=== PATIENT | female | born 1935 | race American Indian/Alaskan Native ===

== ENCOUNTER 2016-10-25 09:00 | Outpatient (CLI) | payer MEDICARE, OTHER ==
[2016-10-25] MEDS ORDERED: XYLOCAINE TOPICAL 2% ONE (09:31)
[2016-10-25] MEDS ORDERED: XYLOCAINE TOPICAL 2% TP ONE (09:47)
== END 2016-10-25 09:01 | disposition home or self-care (01) ==
LOC: WOUND 09:00
PROVIDERS: ATTEND Orthopaedic Surgery
DX: L89.154 Pressure ulcer of sacral region, stage 4 (principal); L89.322 Pressure ulcer of left buttock, stage 2; L89.312 Pressure ulcer of right buttock, stage 2; Z87.891 Personal history of nicotine dependence

== ENCOUNTER 2016-11-14 09:42 | Outpatient (CLI) | payer MEDICARE, OTHER ==
[2016-11-14] MEDS ORDERED: XYLOCAINE TOPICAL 2% TP ONE ×2 (09:46→09:58)
== END 2016-11-14 09:43 | disposition home or self-care (01) ==
LOC: WOUND 09:42
PROVIDERS: ATTEND Internal Medicine
DX: L89.154 Pressure ulcer of sacral region, stage 4 (principal); L89.323 Pressure ulcer of left buttock, stage 3; K59.00 Constipation, unspecified; K21.0 Gastro-esophageal reflux disease with esophagitis; M62.3 Immobility syndrome (paraplegic); G60.3 Idiopathic progressive neuropathy

== ENCOUNTER 2016-12-05 09:21 | Outpatient (CLI) | payer MEDICARE, OTHER ==
[2016-12-05] MEDS ORDERED: XYLOCAINE TOPICAL 4% TP ONE ×2 (09:41→10:16)
== END 2016-12-05 09:22 | disposition home or self-care (01) ==
LOC: WOUND 09:21
PROVIDERS: ATTEND Internal Medicine
DX: L89.312 Pressure ulcer of right buttock, stage 2 (principal); L89.154 Pressure ulcer of sacral region, stage 4; K21.0 Gastro-esophageal reflux disease with esophagitis; M62.3 Immobility syndrome (paraplegic); G60.3 Idiopathic progressive neuropathy; Z87.891 Personal history of nicotine dependence

== ENCOUNTER 2016-12-26 11:14 | Outpatient (CLI) | payer MEDICARE, OTHER ==
[~2016-12-26 11:14] MED LIST: XYLOCAINE TOPICAL 4% TP ONE
[2016-12-26] MEDS ORDERED: XYLOCAINE TOPICAL 4% TP ONE (12:00)
== END 2016-12-26 11:15 | disposition home or self-care (01) ==
LOC: WOUND 11:14
PROVIDERS: ATTEND Internal Medicine
DX: L89.153 Pressure ulcer of sacral region, stage 3 (principal); K21.0 Gastro-esophageal reflux disease with esophagitis; G60.3 Idiopathic progressive neuropathy; M62.3 Immobility syndrome (paraplegic); Q89.9 Congenital malformation, unspecified; K21.9 Gastro-esophageal reflux disease without esophagitis; Z87.891 Personal history of nicotine dependence

== ENCOUNTER 2017-07-22 13:12 | Outpatient (CLI) | payer MEDICARE, OTHER ==
[2017-07-22] MEDS ORDERED: XYLOCAINE TOPICAL 4% TP ONE ×2 (13:44→13:49)
[2017-07-22] MEDS ORDERED: DAKIN'S FULL STRENGTH ONE (14:28)
== END 2017-07-22 13:13 | disposition home or self-care (01) ==
LOC: WOUND 13:12
PROVIDERS: ATTEND Internal Medicine
DX: L89.154 Pressure ulcer of sacral region, stage 4 (principal); K59.00 Constipation, unspecified; K21.0 Gastro-esophageal reflux disease with esophagitis; M62.3 Immobility syndrome (paraplegic); Z87.891 Personal history of nicotine dependence
CPT/HCPCS: 99215; G0463